=== PATIENT | male | born 1975 | race Caucasian/White ===

== ENCOUNTER 2021-07-30 06:39 | Outpatient (CLI) | payer OTHER ==
[~2021-07-30] VITALS: Ht 178 cm; Wt 120.0 kg
[2021-07-30] MEDS ORDERED: METH20TA PO (12:47)
[2021-07-30] MEDS ORDERED: MELA10CA2 PO (12:47)
[2021-07-30] MEDS ORDERED: FLUO90CA4 PO (12:47)
[2021-07-30] MEDS ORDERED: DIPH25CA79 PO (12:47)
[2021-07-30] MEDS ORDERED: SIMV20TA26 PO (12:47)
== END 2021-07-30 13:18 | disposition home or self-care (01) ==
LOC: PREOP 06:39
PROVIDERS: ATTEND Surgery
DX: Z01.818 Encounter for other preprocedural examination (principal)

== ENCOUNTER 2021-08-06 07:44 | Day surgery (SDC) | payer OTHER ==
[~2021-08-06] VITALS: Ht 178 cm; Wt 120.0 kg
[~2021-08-06 07:44] MED LIST: DIPH25CA79 PO; FLUO90CA4 PO; MELA10CA2 PO; METH20TA PO; SIMV20TA26 PO
[2021-08-06] MEDS ORDERED: LACTATED RINGERS 1,000 ML IV ONE (07:48)
[2021-08-06] MEDS ORDERED: LACTATED RINGERS 1,000 ML IV STA (07:56)
[2021-08-06 08:00] VITALS: BP 133/93
--- NOTE | 2021-08-06 08:22 | Progress Note-Pre Operative ---
Pre-Operative Progress Note H&P Reviewed The H&P was reviewed, patient examined and no changes noted. Time Seen by Provider: 08:17 Date H&P Reviewed: Aug 06, 2021 Time H&P Reviewed: 08:17 Pre-Operative Diagnosis: Screening colonoscopy LONNIE FLOWERS DO Aug 06, 2021 08:22
[2021-08-06] MEDS ORDERED: PROPOFOL INJECTION 50 ML IV ONE (09:44)
[2021-08-06] MEDS ORDERED: MIDAZOLAM 2 MG/2 ML (VERSED) VIAL ONE (09:44)
[2021-08-06 10:20] VITALS: BP 144/103
--- NOTE | 2021-08-06 10:21 | Endoscopy Discharge Instruct ---
Endo Procedure/Findings Findings 1.: Polyp 2.: Internal Hemorrhoids Discharge Instructions - Activity: You might feel a little sleepy until tomorrow. This is due to the medicine you received to relax you. Until tomorrow, you should: NOT drive a car, operate machinery or power tools. NOT drink any alcoholic beverages. NOT make any important decisions or sign importortant papers. Do not return to work until tomorrow, unless otherwise instructed. Resume previous activities tomorrow. Diet: Start by taking liquids. If you tolerate liquids, advance to solid food. 1.: Colonscopy in 5 years Notify Physician - If you experience excessive bleeding, unusual abdominal pain, fever, or chest pain, contact your doctor immediately. LONNIE FLOWERS DO Aug 06, 2021 10:21
--- NOTE | 2021-08-06 10:21 | Progress Note-Post Operative ---
Post-Operative Progess Note Surgeon (s)/Wharf Builder (s) Surgeon LONNIE FLOWERS DO Wharf Builder: BRIGITTE Cruz Pre-Operative Diagnosis Screening colonoscopy Post-Operative Diagnosis Polyp int hemorrhoids Procedure & Operative Findings Date of Procedure 08/06/21 Procedure Performed/Findings Colon with hot bx PROCEDURE NOTE: After informed consent was obtained, the patient was brought to the endoscopy suite, placed in bed in left lateral decubitus position. He was administered IV sedation by the HITCH TECHNICIAN who then monitored his vitals the entire time, heart rate, blood pressure and pulse ox and the scope was inserted, pushed all the way to about 150 cm and pushed into the cecum. I took a picture of appendiceal orifice and noted the ileo-cecal valve. Then slowly withdrew the scope insufflating to look circumferentially at the huang starting in the cecum, up the ascending colon to the hepatic flexure, then down the transverse colon to the splenic flexure and into the descending colon. Next down in the sigmoid colon, I found a small polyp and elected to do a hot biopsy to remove it. Finally into the rectal vault and retroflexed the scope. Took a picture of the internal hemorrhoids. The patient tolerated the procedure. He was recovered in endoscopy suite. Anesthesia Type IV sedation by HITCH TECHNICIAN Estimated Blood Loss Estimated blood loss (mL): scant Specimens/Packing Specimens Removed simgoid polyp LONNIE FLOWERS DO Aug 06, 2021 10:21
[2021-08-06 10:25] VITALS: BP 129/76
[2021-08-06 10:30] VITALS: BP 123/72
[2021-08-06 10:49] VITALS: BP 121/87
[2021-08-06 10:51] VITALS: BP 121/87
--- NOTE | 2021-08-06 12:36 | Anesthesia-General Post-Op ---
MAC Patient Condition Mental Status/LOC: Same as Preop Cardiovascular: Satisfactory Nausea/Vomiting: Absent Respiratory: Satisfactory Pain: Controlled Complications: Absent Post Op Complications Complications None Follow Up Care/Instructions Patient Instructions None needed. Anesthesiology Discharge Order Discharge Order Patient is doing well, no complaints, stable vital signs, no apparent adverse anesthesia problems. No complications reported per nursing. SAGE CALDERON CRNA Aug 06, 2021 12:36
== END 2021-08-06 10:52 | disposition home or self-care (01) ==
LOC: ENDO 07:44
PROVIDERS: ATTEND Surgery
DX: Z12.11 Encounter for screening for malignant neoplasm of colon (principal); K63.5 Polyp of colon; K64.8 Other hemorrhoids; E66.01 Morbid (severe) obesity due to excess calories; K52.9 Noninfective gastroenteritis and colitis, unspecified; Z68.38 Body mass index [BMI] 38.0-38.9, adult; Z90.49 Acquired absence of other specified parts of digestive tract
CPT/HCPCS: 88305

== ENCOUNTER 2022-04-22 18:09 | Emergency (ER) | payer OTHER ==
[~2022-04-22] VITALS: Ht 177.8 cm; Wt 118.8 kg
[2022-04-22] MEDS ORDERED: KETOROLAC 30 MG/ML VIAL IVP ONE (18:30)
[2022-04-22] MEDS ORDERED: ONDANSETRON 4 MG/2 ML (SDV) Z0FRAN IVP ONE (18:30)
[2022-04-22] MEDS ORDERED: morphine INJ 10 MG/ML 1ML (SYR OR VIAL) IVP STA (18:30)
--- NOTE | 2022-04-22 18:34 | ED Abdominal Pain ---
General Chief Complaint: Abdominal/GI Problems Stated Complaint: ABD PAIN Nursing Triage Note: PT TO RM 2 BY WC WITH COMPLAINT OF RLQ PAIN THAT STARTED 2 HOURS AGO. Source of Information: Patient Exam Limitations: No Limitations History of Present Illness Date Seen by Provider: Apr 22, 2022 Time Seen by Provider: 18:15 Initial Comments 46-year-old male with no pertinent past medical history coming in due to right lower quadrant abdominal pain. Started 2 hours prior to arrival, was slow in onset, sharp, now severe. Nothing seems to make it better or worse, and its constant. Has some nausea but no vomiting with it. He states it feels similar to kidney stone pain he had many years ago, except that was in his flank. Denies any fever, vomiting, diarrhea, dysuria, hematuria, chest pain, shortness of breath, rash, or any other concerns. Allergies and Home Medications Allergies Coded Allergies: No Known Drug Allergies (Unverified , 07/30/21) Patient Home Medication List Home Medication List Reviewed: Yes Diphenhydramine HCl (Benadryl) 25 Mg Capsule, 25 MG PO HS, (Reported) Entered as Reported by: JAMISON SANON on 07/30/21 124 Fluoxetine HCl (Fluoxetine Dr) 90 Mg Capsule.dr, 90 MG PO DAILY, (Reported) Entered as Reported by: JAMISON SANON on 07/30/21 124 Melatonin (Melatonin) 10 Mg Capsule, 10 MG PO HS, (Reported) Entered as Reported by: JAMISON SANON on 07/30/211246 Methylphenidate HCl (Ritalin) 20 Mg Tablet, 20 MG PO DAILY, (Reported) Entered as Reported by: JAMISON SANON on 07/30/21 124 Simvastatin (Simvastatin) 20 Mg Tablet, 20 MG PO DAILY, (Reported) Entered as Reported by: JAMISON SANON on 07/30/21 1247 Review of Systems Review of Systems Constitutional: No fever EENTM: No Symptoms Reported Respiratory: No Symptoms Reported Cardiovascular: No Symptoms Reported Gastrointestinal: See HPI Genitourinary: No Symptoms Reported Musculoskeletal: no symptoms reported Skin: no symptoms reported Psychiatric/Neurological: No Symptoms Reported Endocrine: No Symptoms Reported Hematologic/Lymphatic: No Symptoms Reported All Other Systems Reviewed Negative Unless Noted: Yes Past Jauhauf-Bbqyxn-Hkagcg Hx Patient Social History Tobacco Use?: No Use of E-Cig and/or Vaping dev: No Substance use?: No Alcohol Use?: No Pt feels they are or have been: No Immunizations Up To Date First/Initial COVID19 Vaccinat: NONE Second COVID19 Vaccination [place]: NONE Third COVID19 Vaccination Date: NONE Seasonal Allergies Seasonal Allergies: Yes Past Medical History Surgeries: Yes Gallbladder, Tonsillectomy Respiratory: No High Cholesterol Neurological: Yes (CERVICAL DISKS) Gastrointestinal: Yes (GALL BLADDER REMOVED) Arthritis Endocrine: No HEENT: No Cancer: No Psychosocial: Yes ADD/ADHD, Depression Integumentary: No Blood Disorders: No Adverse Reaction/Blood Tranf: No Physical Exam Vital Signs Vital Signs - First Documented 04/22/22 18:15 Temp 36.8 Pulse 99 Resp 16 B/P (MAP) 175/125 (142) Pulse Ox 98 O2 Delivery Room Air Capillary Refill : Less Than 3 Seconds Height/Weight/BMI Height: '" Weight: lbs. oz. kg; 37.00 BMI Method: General Appearance: WD/WN, mild distress HEENT: PERRL/EOMI, normal ENT inspection, pharynx normal Neck: non-tender, full range of motion, supple, normal inspection Respiratory: chest non-tender, lungs clear, normal breath sounds, no respiratory distress, no accessory muscle use Cardiovascular: regular rate, rhythm, no edema, no murmur Gastrointestinal: normal bowel sounds, soft; No distended, No guarding, No rebound; tenderness Extremities: normal range of motion, non-tender, normal inspection, no pedal edema, no calf tenderness, normal capillary refill Back: normal inspection, no CVA tenderness, no vertebral tenderness; No CVA tenderness (R) Neurologic/Psychiatric: no motor/sensory deficits, alert, normal mood/affect Skin: normal color, warm/dry Lymphatic: no adenopathy Progress/Results/Core Measures Results/Orders Lab Results Laboratory Tests Test 04/22/22 18:15 04/22/22 18:50 Range/Units White Blood Count 11.9 H 4.3-11.0 10^3/uL Red Blood Count 4.94 4.30-5.52 10^6/uL Hemoglobin 14.1 13.3-17.7 g/dL Hematocrit 43 40-54 % Mean Corpuscular Volume 87 80-99 fL Mean Corpuscular Hemoglobin 29 25-34 pg Mean Corpuscular Hemoglobin Concent 33 32-36 g/dL Red Cell Distribution Width 13.0 10.0-14.5 % Platelet Count 348 130-400 10^3/uL Mean Platelet Volume 10.9 9.0-12.2 fL Immature Granulocyte % (Auto) 0 % Neutrophils (%) (Auto) 55 42-75 % Lymphocytes (%) (Auto) 35 12-44 % Monocytes (%) (Auto) 8 0-12 % Eosinophils (%) (Auto) 1 0-10 % Basophils (%) (Auto) 1 0-10 % Neutrophils # (Auto) 6.5 1.8-7.8 10^3/uL Lymphocytes # (Auto) 4.2 H 1.0-4.0 10^3/uL Monocytes # (Auto) 1.0 0.0-1.0 10^3/uL Eosinophils # (Auto) 0.1 0.0-0.3 10^3/uL Basophils # (Auto) 0.1 0.0-0.1 10^3/uL Immature Granulocyte # (Auto) 0.0 0.0-0.1 10^3/uL Sodium Level 141 135-145 MMOL/L Potassium Level 3.7 3.6-5.0 MMOL/L Chloride Level 104 98-107 MMOL/L Carbon Dioxide Level 21 21-32 MMOL/L Anion Gap 16 H 5-14 MMOL/L Blood Urea Nitrogen 11 7-18 MG/DL Creatinine 1.04 0.60-1.30 MG/DL Estimat Glomerular Filtration Rate 90 BUN/Creatinine Ratio 11 Glucose Level 103 70-105 MG/DL Calcium Level 10.0 8.5-10.1 MG/DL Corrected Calcium 8.5-10.1 MG/DL Magnesium Level 2.0 1.6-2.4 MG/DL Total Bilirubin 0.5 0.1-1.0 MG/DL Aspartate Amino Transf (AST/SGOT) 30 5-34 U/L Alanine Aminotransferase (ALT/SGPT) 33 0-55 U/L Alkaline Phosphatase 87 40-136 U/L Total Protein 7.8 6.4-8.2 GM/DL Albumin 4.6 H 3.2-4.5 GM/DL Lipase 53 8-78 U/L Urine Color YELLOW Urine Clarity CLOUDY Urine pH 5.5 5-9 Urine Specific [place] >=1.030 1.016-1.022 Urine Protein TRACE H NEGATIVE Urine Glucose (UA) NEGATIVE NEGATIVE Urine Ketones NEGATIVE NEGATIVE Urine Nitrite NEGATIVE NEGATIVE Urine Bilirubin NEGATIVE NEGATIVE Urine Urobilinogen 0.2 < = 1.0 MG/DL Urine Leukocyte Esterase NEGATIVE NEGATIVE Urine RBC (Auto) 3+ H NEGATIVE Urine RBC 50-100 H /HPF Urine WBC NONE /HPF Urine Squamous Epithelial Cells NONE /HPF Urine Renal Epithelial Cells NONE /HPF Urine Crystals NONE /LPF Urine Bacteria NEGATIVE /HPF Urine Casts NONE /LPF Urine Mucus SMALL H /LPF Urine Culture Indicated NO My Orders Orders - KODI KAN MD Cbc With Automated Diff (04/22/22 18:30) Comprehensive Metabolic Panel (04/22/22 18:30) Lipase (04/22/22 18:30) Magnesium (04/22/22 18:30) Ua Culture If Indicated (04/22/22 18:30) Ct Abd/Pelv W (Appendicitis) (04/22/22 18:30) Ed Iv/Invasive Line Start (04/22/22 18:30) Morphine Injection (Morphine Injection (04/22/22 18:30) Ketorolac Injection (Toradol Injection) (04/22/22 18:30) Ondansetron Injection (Zofran Injectio (04/22/22 18:30) Iohexol Injection (Omnipaque 350 Mg/Ml 1 (04/22/22 18:45) Ns (Ivpb) (Sodium Chloride 0.9% Ivpb Bag (04/22/22 18:45) Medications Given in ED Current Medications Medications Dose Ordered Sig/Nettie Route Start Time Stop Time Status Last Admin Dose Admin Iohexol 100 ml ONCE ONCE IV 04/22/22 18:45 04/22/22 18:46 DC 04/22/22 19:08 100 ML Ketorolac Tromethamine 15 mg ONCE ONCE IVP 04/22/22 18:30 04/22/22 18:32 DC 04/22/22 18:46 15 MG Ondansetron HCl 4 mg ONCE ONCE IVP 04/22/22 18:30 04/22/22 18:32 DC 04/22/22 18:46 4 MG Sodium Chloride 100 ml ONCE ONCE IV 04/22/22 18:45 04/22/22 18:46 DC 04/22/22 19:08 80 ML Vital Signs/I&O 04/22/22 18:15 Temp 36.8 Pulse 99 Resp 16 B/P (MAP) 175/125 (142) Pulse Ox 98 O2 Delivery Room Air Blood Pressure Mean: 142 Progress Progress Note : Progress Note 46-year-old male with above history coming in due to right lower quadrant abdominal pain. ABCs were intact and vitals were stable on presentation. He was in severe pain on presentation, so an IV was placed and he was given morphine, Toradol, and Zofran. Between my examination of the patient, and going for CT scan, he urinated. Immediately after that, his pain completely went away. His urine did have blood in it. CT negative for any acute findings. I suspect the patient had a kidney stone and passed it just before his CT scan as he is completely back to his baseline. I believe he is stable for discharge with outpatient follow-up. He was sent home with strict return precautions. Diagnostic Imaging Diagonstic Imaging: CT Plain Films/CT/US/NM/MRI: abdomen, pelvis Comments NAME: JUAN F CYR [facility] REC#: [id number] PT STATUS: REG ER : 1975 PHYSICIAN: KODI KAN MD ADMIT DATE: 04/22/22/ER Signed Date of Exam:04/22/22 CT ABD/PELV W (APPENDICITIS) PROCEDURE: CT abdomen and pelvis with contrast, rule out appendicitis. TECHNIQUE: Multiple contiguous axial images were obtained through the abdomen and pelvis after the administration of intravenous contrast. All CT scans use one or more of the following dose optimizing techniques: Automated exposure control, MA and/or KvP adjustment based on patient size and exam type or iterative reconstruction. INDICATION: Right lower quadrant pain. FINDINGS: The lung bases are clear. Liver appears normal. Gallbladder is surgically absent. Pancreas is normal. Spleen is not enlarged. The kidneys and adrenals appear normal. The appendix is normal. Colon is unremarkable. Urinary bladder is normal. Small bowel is not dilated. There is no intraperitoneal free air or free fluid. IMPRESSION: No acute abnormality is seen in the abdomen or pelvis. No evidence for appendicitis. Dictated by: Dictated on workstation # [id number] Dict: 04/22/221914 Trans: 04/22/221925 [id number] Interpreted by: VINCE GONZALEZ MD Electronically signed by: VINCE GONZALEZ MD 04/22/226 Departure Impression Primary Impression: RLQ abdominal pain Additional Impression: Hematuria Qualified Codes: R31.29 - Other microscopic hematuria Disposition: 01 HOME, SELF-CARE Condition: Improved Departure-Patient Inst. Decision time for Depature: 19:34 Referrals: NO,LOCAL PHYSICIAN (PCP/Family) Primary Care Physician Patient Instructions: Blood in Urine (Hematuria), Adult ED Add. Discharge Instructions: I suspect you had a kidney stone that you passed while here just before you went to CT scan. Your CT scan was normal, but you did have blood in your urine. If pain comes back, there are medicines at your pharmacy. I do want you to have a repeat urinalysis sometime in the next couple of months to be sure the blood goes away. Your primary physician can order this. Scripts Ondansetron (Ondansetron Odt) 4 Mg Tab.rapdis 4 MG SL Q6H PRN for NAUSEA/VOMITING for 5 Days, #20 TAB Prov: KODI KAN MD 04/22/22 Ketorolac Tromethamine (Ketorolac Tromethamine) 10 Mg Tablet 10 MG PO Q6H for 3 Days, #12 TAB Prov: KODI KAN MD 04/22/22 Work/School Note: Work Release Form Date Seen in the Emergency Department: Apr 22, 2022 Return to Work: Apr 24, 2022 Restrictions: No Restrictions KODI KAN MD Apr 22, 2022 18:34
[2022-04-22 18:36] LABS: BASOPHILS # (AUTO) 0.1 10^3/uL (0.0-0.1); BASOPHILS % (AUTO) 1 % (0-10); EOSINOPHILS # (AUTO) 0.1 10^3/uL (0.0-0.3); EOSINOPHILS % (AUTO) 1 % (0-10); HEMATOCRIT 43 % (40-54); HEMOGLOBIN 14.1 g/dL (13.3-17.7); LYMPHOCYTES # (AUTO) 4.2 10^3/uL (1.0-4.0); LYMPHOCYTES % (AUTO) 35 % (12-44); MEAN CORPUSCULAR HEMOGLOBIN 29 pg (25-34); MEAN CORPUSCULAR HGB CONC 33 g/dL (32-36); MEAN CORPUSCULAR VOLUME 87 fL (80-99); MEAN PLATELET VOLUME 10.9 fL (9.0-12.2); MONOCYTES % (AUTO) 8 % (0-12); NEUTROPHILS # (AUTO) 6.5 10^3/uL (1.8-7.8); NEUTROPHILS % (AUTO) 55 % (42-75); PLATELET COUNT 348 10^3/uL (130-400); WHITE BLOOD COUNT 11.9 10^3/uL (4.3-11.0)
[2022-04-22 18:45] LABS: ALBUMIN 4.6 GM/DL (3.2-4.5)
[2022-04-22] MEDS ORDERED: NS 100 ML (IVPB) BAG IV ONE (18:45)
[2022-04-22] MEDS ORDERED: IOHEXOL 350 MG/ML 100 ML (OMNIPAQUE 350) VIAL IV ONE (18:45)
[2022-04-22 18:46] LABS: CHLORIDE 104 MMOL/L (98-107); POTASSIUM 3.7 MMOL/L (3.6-5.0); SODIUM 141 MMOL/L (135-145)
[2022-04-22 18:48] LABS: GLUCOSE 103 MG/DL (70-105); TOTAL PROTEIN 7.8 GM/DL (6.4-8.2)
[2022-04-22 18:49] LABS: CARBON DIOXIDE 21 MMOL/L (21-32)
[2022-04-22 18:50] LABS: BILIRUBIN,TOTAL 0.5 MG/DL (0.1-1.0)
[2022-04-22 18:51] LABS: ALKALINE PHOSPHATASE 87 U/L (40-136)
[2022-04-22 18:54] LABS: BILIRUBIN,URINE NEGATIVE (NEGATIVE); CLARITY,URINE CLOUDY; COLOR,URINE YELLOW; GLUCOSE, URINE (UA) NEGATIVE (NEGATIVE); KETONES,URINE NEGATIVE (NEGATIVE); LEUKOCYTE ESTERASE ,URINE NEGATIVE (NEGATIVE); NITRITE,URINE NEGATIVE (NEGATIVE); PH,URINE 5.5 (5-9); PROTEIN,URINE TRACE (NEGATIVE)
[2022-04-22 18:54] LABS: ALANINE AMINOTRANSFERASE 33 U/L (0-55)
[2022-04-22 18:55] LABS: LIPASE 53 U/L (8-78)
[2022-04-22 19:02] LABS: BACTERIA,URINE NEGATIVE /HPF; RBC,URINE 50-100 /HPF
[2022-04-22 19:10] LABS: BUN/CREATININE RATIO 11; CREATININE SERUM 1.04 MG/DL (0.60-1.30); GFR ESTIMATED 90
--- NOTE | 2022-04-22 19:23 | Diagnostic Imaging Report ---
PROCEDURE: CT abdomen and pelvis with contrast, rule out appendicitis. TECHNIQUE: Multiple contiguous axial images were obtained through the abdomen and pelvis after the administration of intravenous contrast. All CT scans use one or more of the following dose optimizing techniques: Automated exposure control, MA and/or KvP adjustment based on patient size and exam type or iterative reconstruction. INDICATION: Right lower quadrant pain. FINDINGS: The lung bases are clear. Liver appears normal. Gallbladder is surgically absent. Pancreas is normal. Spleen is not enlarged. The kidneys and adrenals appear normal. The appendix is normal. Colon is unremarkable. Urinary bladder is normal. Small bowel is not dilated. There is no intraperitoneal free air or free fluid. IMPRESSION: No acute abnormality is seen in the abdomen or pelvis. No evidence for appendicitis. Dictated by: Dictated on workstation # [id number]
[2022-04-22] MEDS ORDERED: ONDA4TAB11 SL (19:35)
[2022-04-22] MEDS ORDERED: KETO10TA PO (19:35)
[2022-04-22 19:57] VITALS: BP 135/94
== END 2022-04-22 19:57 | disposition home or self-care (01) ==
LOC: EDUNIT# 18:09 → ER 18:11
DX: R10.31 Right lower quadrant pain (principal); R31.9 Hematuria, unspecified; Z90.49 Acquired absence of other specified parts of digestive tract
CPT/HCPCS: 36415; 74177; 80053; 81000; 83690; 83735; 85025; 99283

== ENCOUNTER 2022-05-02 05:31 | Outpatient (CLI) | payer OTHER ==
[~2022-05-02] VITALS: Ht 177.8 cm; Wt 122.7 kg
[~2022-05-02 05:31] MED LIST changes: +KETO10TA PO; +ONDA4TAB11 SL
[2022-05-02] MEDS ORDERED: NAPR220C11 PO (14:05)
== END 2022-05-02 14:24 | disposition home or self-care (01) ==
LOC: PREOP 05:31
PROVIDERS: ATTEND Otolaryngology Otolaryngology/Facial Plastic Surgery
DX: Z01.818 Encounter for other preprocedural examination (principal)

== ENCOUNTER 2022-05-10 06:15 | Day surgery (SDC) | payer OTHER ==
[2022-05-10] VITALS (11 sets, daily range): BP systolic 112–133; BP diastolic 77–92
[~2022-05-10] VITALS: Ht 177.8 cm; Wt 122.7 kg
[~2022-05-10 06:15] MED LIST changes: +NAPR220C11 PO
[2022-05-10] MEDS ORDERED: LACTATED RINGERS 1,000 ML IV PRN (06:30)
[2022-05-10 06:43] LABS: BASOPHILS # (AUTO) 0.1 10^3/uL (0.0-0.1); BASOPHILS % (AUTO) 1 % (0-10); EOSINOPHILS # (AUTO) 0.2 10^3/uL (0.0-0.3); EOSINOPHILS % (AUTO) 2 % (0-10); HEMATOCRIT 42 % (40-54); LYMPHOCYTES # (AUTO) 2.7 10^3/uL (1.0-4.0); LYMPHOCYTES % (AUTO) 30 % (12-44); MEAN CORPUSCULAR HEMOGLOBIN 29 pg (25-34); MEAN CORPUSCULAR HGB CONC 33 g/dL (32-36); MEAN CORPUSCULAR VOLUME 87 fL (80-99); MEAN PLATELET VOLUME 10.2 fL (9.0-12.2); MONOCYTES # (AUTO) 0.8 10^3/uL (0.0-1.0); MONOCYTES % (AUTO) 9 % (0-12); NEUTROPHILS # (AUTO) 5.3 10^3/uL (1.8-7.8); NEUTROPHILS % (AUTO) 59 % (42-75); PLATELET COUNT 308 10^3/uL (130-400)
[2022-05-10] MEDS ORDERED: PHENYLEPHRINE 0.5% NASAL SPR (NEO-SYNEPHRINE) REG ONE (06:51)
[2022-05-10] MEDS ORDERED: BSS 15 ML ONE (06:51)
[2022-05-10] MEDS ORDERED: COCAINE HCL 4% 2 ML SYR ONE (06:51)
[2022-05-10 06:56] LABS: ALBUMIN 4.4 GM/DL (3.2-4.5); BILIRUBIN,TOTAL 0.5 MG/DL (0.1-1.0); CALCIUM 9.2 MG/DL (8.5-10.1); CREATININE SERUM 0.82 MG/DL (0.60-1.30); POTASSIUM 3.7 MMOL/L (3.6-5.0); TOTAL PROTEIN 7.6 GM/DL (6.4-8.2)
--- NOTE | 2022-05-10 07:18 | Progress Note-Post Operative ---
Post-Operative Progess Note Surgeon (s)/Dive Superintendent (s) Surgeon KELY KEY MD Dive Superintendent n/a Pre-Operative Diagnosis Nasoseptal Perforation Post-Operative Diagnosis same Post-Op Procedure Note Date of Procedure: May 10, 2022 Name of Procedure Performed: Insertion of Nasoseptal Button Description & Findings Description and Findings: n/a Anesthesia Type lma Estimated Blood Loss minimal Packing none. Specimen(s) collected/removed none KELY KEY MD May 10, 2022 07:18
--- NOTE | 2022-05-10 07:18 | Progress Note-Pre Operative ---
Pre-Operative Progress Note Date of Available H&P: May 10, 2022 Date H&P Reviewed: May 10, 2022 Time H&P Reviewed: 06:30 History & Physical: H&P Reviewed, Patient Examed, No changes noted Changes from last HP none Pre-Operative Diagnosis: Nasoseptal Perforation KELY KEY MD May 10, 2022 07:18
[2022-05-10] MEDS ORDERED: PROMETHAZINE INJ 25 MG/ML (PHENERGAN) AMP IVP PRN (07:30)
[2022-05-10] MEDS ORDERED: HYDROcodone/APAP 5 MG/325 MG (LORTAB) TAB PO PRN (07:30)
[2022-05-10] MEDS ORDERED: D5 1/2 NS W/KCL 20 MEQ/L 1,000 ML IV SCH (07:30)
[2022-05-10] MEDS ORDERED: LIDOCAINE PF 2% 5 ML (XYLOCAINE) VIAL ONE (08:14)
[2022-05-10] MEDS ORDERED: fentaNYL INJ 100 MCG/2 ML AMP ONE (08:14)
[2022-05-10] MEDS ORDERED: ONDANSETRON 4 MG/2 ML (SDV) Z0FRAN ONE (08:14)
[2022-05-10] MEDS ORDERED: proPOfol 200 MG/20 ML (DIPRIVAN) VIAL IV ONE (08:14)
[2022-05-10] MEDS ORDERED: SEVOFLURANE (ULTANE) 15 ML INHAL SOLN ONE ×2 (08:14→08:39)
[2022-05-10] MEDS ORDERED: MIDAZOLAM 2 MG/2 ML (VERSED) VIAL ONE (08:14)
[2022-05-10] MEDS ORDERED: SUCCINYLCHOLINE INJ 100 MG/5 ML SYR/VIAL ONE (08:15)
[2022-05-10] MEDS ORDERED: morphine INJ 10 MG/ML 1ML (SYR OR VIAL) IVP ONE (09:00)
[2022-05-10] MEDS ORDERED: fentaNYL INJ 100 MCG/2 ML AMP IVP ONE (09:00)
[2022-05-10] MEDS ORDERED: ONDANSETRON 4 MG/2 ML (SDV) Z0FRAN IVP PRN (09:00)
[2022-05-10] MEDS ORDERED: MEPERIDINE (DEMEROL) INJ 50 MG/ML IVP ONE (09:00)
--- NOTE | 2022-05-10 09:02 | Anesthesia-General Post-Op ---
General Patient Condition Mental Status/LOC: Same as Preop Cardiovascular: Satisfactory Nausea/Vomiting: Absent Respiratory: Satisfactory Pain: Controlled Complications: Absent Post Op Complications Complications None Follow Up Care/Instructions Patient Instructions None needed. Anesthesia/Patient Condition Patient Condition Patient is doing well, no complaints, stable vital signs, no apparent adverse anesthesia problems. No complications reported per nursing. VINCENT SIMMS CRNA May 10, 2022 09:02
== END 2022-05-10 10:49 | disposition home or self-care (01) ==
LOC: SDC 06:15
PROVIDERS: ATTEND Otolaryngology Otolaryngology/Facial Plastic Surgery
DX: J34.89 Other specified disorders of nose and nasal sinuses (principal); E66.01 Morbid (severe) obesity due to excess calories; Z68.38 Body mass index [BMI] 38.0-38.9, adult
CPT/HCPCS: 36415; 80053; 85025